=== PATIENT | female | born 1945 | race Native Hawaiian/Other Pacific Islander ===

== ENCOUNTER 2020-06-24 11:55 | Outpatient (CLI) | payer OTHER, BC | END 2020-06-24 21:55 | disposition home or self-care (01) | LOC: INF 11:55 | PROVIDERS: ATTEND Internal Medicine | DX: Z23 Encounter for immunization (principal) | CPT/HCPCS: 96372 ==

== ENCOUNTER 2020-07-22 08:59 | Outpatient (CLI) | payer OTHER, BC | END 2020-07-22 21:05 | disposition home or self-care (01) | LOC: INF 08:59 | PROVIDERS: ATTEND Internal Medicine | DX: Z23 Encounter for immunization (principal) | CPT/HCPCS: 96372 ==